=== PATIENT | male | born 1955 | race Caucasian/White ===

== ENCOUNTER 2021-10-24 14:33 | Outpatient (CLI) | payer BC, MEDICARE | END 2021-10-24 14:34 | disposition home or self-care (01) | LOC: BICRAD 14:33 | PROVIDERS: ATTEND Family Medicine | DX: M54.2 Cervicalgia (principal); M47.812 Spondylosis without myelopathy or radiculopathy, cervical region | CPT/HCPCS: 72052 ==

== ENCOUNTER 2021-11-21 13:17 | Outpatient (CLI) | payer BC | END 2021-11-21 13:18 | disposition home or self-care (01) | LOC: SCSMRI 13:17 | PROVIDERS: ATTEND Anesthesiology Pain Medicine | DX: M47.812 Spondylosis without myelopathy or radiculopathy, cervical region (principal); M48.02 Spinal stenosis, cervical region | CPT/HCPCS: 70210; 72141 ==